=== PATIENT | female | born 1965 | race Caucasian/White ===

== ENCOUNTER 2018-12-25 12:16 | Emergency (ER) | payer OTHER ==
[~2018-12-25] VITALS: Ht 165.1 cm; Wt 72.6 kg
[~2018-12-25 12:16] MED LIST: ACETAMINOPHEN-1 EAC1 PO; ADDERALL; ALBUTEROL INH; BACLOFEN 10 MG10 MG; BACTRIM DS TAB1 EACH PO; BACTROBAN CREAM30 G1 TOP; BENTYL 10 MG CA10 MG PO; CIPROFLOXACIN500 M1 PO; CLONAZEPAM; CLONAZEPAM 1 MG1 M1 PO; DEPAKOTE; DEXILANT30 MG; DIAZEPAM 10 MG10 M1; FLEXERIL PO; HYDROCHLOROTH12.5 M1 PO; KEFLEX500 MG PO; KLONIPIN; LISINOPRIL10 MG; LORTAB; NAPROSYN500 MG PO; NEXIUM40 MG PO; NUVIGIL; OXYCODONE HCL5 M1 PO; OXYCONTIN CR 1010 M1 PO; PENICILLIN V P500 MG PO; PERCOCET 10-321 EACH; PERCOCET 5-3251 EACH PO; PHENERGAN 25 MG25 M1 PO; PROZAC 20 MG20 MG PO; PYRIDIUM200 MG PO; SAVELLA50 MG; TOPROL XL25 MG PO; VALIUM2 MG PO; VICOPROFEN 2001 EACH PO; VITAMIN D 5050000 I1; XANAX 0.5 MG0.5 MG PO; [UNRECOGNIZED DRUG - OTHER]
[2018-12-25] MEDS ORDERED: LIPITOR10 MG PO (12:29)
[2018-12-25] MEDS ORDERED: KLONOPIN0.5 MG PO (12:30)
[2018-12-25] MEDS ORDERED: NORCO 5-325 TA1 EACH PO (13:36)
[2018-12-25 14:31] VITALS: BP 138/86
== END 2018-12-25 14:33 | disposition home or self-care (01) ==
LOC: M.ERS 12:16
DX: S96.812A Strain of other specified muscles and tendons at ankle and foot level, left foot, initial encounter (principal); S43.492A Other sprain of left shoulder joint, initial encounter; M77.32 Calcaneal spur, left foot; S92.002A Unspecified fracture of left calcaneus, initial encounter for closed fracture; K21.9 Gastro-esophageal reflux disease without esophagitis; M19.90 Unspecified osteoarthritis, unspecified site; I10 Essential (primary) hypertension; E78.5 Hyperlipidemia, unspecified; F31.9 Bipolar disorder, unspecified; F41.9 Anxiety disorder, unspecified; Z90.49 Acquired absence of other specified parts of digestive tract; Z88.8 Allergy status to other drugs, medicaments and biological substances; W10.9XXA Fall (on) (from) unspecified stairs and steps, initial encounter; Y93.89 Activity, other specified; Y92.89 Other specified places as the place of occurrence of the external cause; Y99.8 Other external cause status